=== PATIENT | male | born 2000 | race Caucasian/White ===

== ENCOUNTER 2023-08-11 20:04 | Emergency (ER) | payer MEDICARE, MEDICAID, SELFPAY ==
[2023-08-11 20:22] VITALS: BP 115/52; PULSE 101; RESP 16; TEMP 36.4; O2SAT 98; BMI 22.9
[2023-08-11 21:36] LABS: Urine Volume Low Vol <10mL (spun)
[2023-08-11 21:37] LABS: RBC Urine None Seen (0-5/HPF); Squamous Epithelial Cell Urine 0-1 /HPF (0-5/HPF); WBC Urine 0-1/HPF (0-5/HPF)
[2023-08-11 21:39] LABS: Bacteria Urine Occasional (0-1); Culture Indicated Urine Specimen Cultured
--- NOTE | 2023-08-11 22:57 | DI.RAD.S_ITS ---
PROCEDURE: XR ABDOMEN 1V INDICATIONS: abd pain TECHNIQUE: One view of the abdomen acquired. COMPARISON: None. FINDINGS: Surgical changes and devices: None. Bowel: Bowel gas pattern is nonobstructive. Prominent colonic stool. Soft tissues: No suspicious abdominal calcifications. Visualized solid organ contours appear normal in size. Bones: No suspicious bony lesions. IMPRESSION: Prominent colonic stool without obstruction. Dictated by: Fallon Joshua M.D. on 08/11/2023 at 23:34 Approved by: Fallon Joshua M.D. on 08/11/2023 at 23:35
--- NOTE | 2023-08-11 22:57 | ED.GENADULT ---
HPI - General Adult General Chief complaint: Abdominal Pain Stated complaint: urinary issues, pain Time Seen by Provider: 08/11/23 21:00 Source: patient and other Mode of arrival: Ambulatory History of Present Illness HPI narrative: Patient is a 23-year-old male. Has a history of autism. Chronic constipation. Takes MiraLax every morning. Is here with a elementary teacher who states that earlier today the patient was describing some issues with urination. Has had dark-colored urine and very foul-smelling urine. The patient states it does hurt somewhat to go to the bathroom. He also is stating that he was having some generalized abdominal pain. Also pain around his rectum. It is potentially been little over 24 hours since having a bowel movement. No vomiting. Related Data Home Medications Medication Instructions Recorded Confirmed clonazepam 0.5 mg tablet 0.5 mg PO DAILY 07/10/23 07/10/23 clonazepam 1 mg tablet 1 mg PO DAILY 07/10/23 07/10/23 quetiapine 200 mg tablet See Rx Instructions PO .COMPLEX 07/10/23 07/10/23 quetiapine 400 mg tablet 400 mg PO BEDTIME 07/10/23 07/10/23 Previous Rx's Medication Instructions Recorded acetaminophen 325 mg capsule 650 mg (2 x 325 mg) PO Q6H PRN 05/10/22 (Tylenol) fever or pain #30 caps divalproex 500 mg tablet,delayed 500 mg PO BID #180 tabs 09/23/22 release hydroxyzine HCl 50 mg tablet 50 mg PO BID #180 tabs 09/23/22 polyethylene glycol 3350 17 See Rx Instructions .Route 04/08/23 gram/dose oral powder .COMPLEX #238 grams psyllium husk (with sugar) 3.4 See Rx Instructions .Route 04/08/23 gram/12 gram oral powder (Fiber .COMPLEX #575 grams (psyllium husk-sugar)) fluoxetine 40 mg capsule 40 mg PO DAILY #90 caps 06/10/23 cetirizine 10 mg tablet 10 mg PO BEDTIME #90 tabs 07/28/23 cephalexin 500 mg capsule 500 mg PO BID 3 days #6 caps 08/11/23 polyethylene glycol 3350 17 See Rx Instructions .Route 08/11/23 gram/dose oral powder (Miralax) .COMPLEX #238 grams Allergies Allergy/AdvReac Type Severity Reaction Status Date / Time lorazepam AdvReac Verified 07/10/23 16:04 risperidone AdvReac Verified 07/10/23 16:04 Review of Systems Review of Systems Narrative: See HPI Patient History Medical History All medications reviewed Seasonal allergies Constipation Seizures Headache History of developmental delay ADHD Social History Smoking Status: Never smoker Smoking Status: Never smoker Exam Initial Vital Signs Initial Vital Signs: Vital Signs Temperature 97.6 F 08/11/23 20:22 Pulse Rate 101 H 08/11/23 20:22 Respiratory Rate 16 08/11/23 20:22 Blood Pressure 115/52 L 08/11/23 20:22 Pulse Oximetry 98 08/11/23 20:22 Oxygen Delivery Method Room Air 08/11/23 20:22 HENMA Head: normal to inspection and normocephalic Resp Effort & Inspection: normal respiratory effort Cardio Rate: regular rate GI Inspection: non-distended Palpation: soft, No firm, No guarding, No rigid and No tender Neuro General: patient alert and patient awake Course Orders Ordered: ED Orders 08/11/23 21:00 Urine Culture Stat Urine Microscopic Stat 08/11/23 22:57 XR abdomen 1V Stat Discontinued Medications Cephalexin HCl (Cephalexin 250 Mg Capsule) 500 mg PO NOW ONE Stop: 08/11/23 23:42 Last Admin: 08/12/23 00:08 Dose: 500 mg Documented By: DEBBIE Vital Signs Vital signs: Vital Signs - 8 hr 08/11/23 20:22 08/12/23 00:24 Temperature 97.6 F Pulse Rate 101 H 90 Respiratory Rate 16 18 Blood Pressure 115/52 L 117/78 Pulse Oximetry 98 100 Oxygen Delivery Method Room Air Room Air Medical Decision Making Lab Data Lab results reviewed: Yes I reviewed the patient's lab results. Labs: Lab Results 08/11/23 Range/Units 21:00 Urine RBC None seen (0-5/HPF) Urine WBC 0-1/hpf (0-5/HPF) Ur Squamous Epith Cells 0-1 /hpf (0-5/HPF) Urine Bacteria Occasional (0-1) (None) Ur Culture Indicated? Specimen cultured Vol Urine Centrifuged Low vol <10ml (spun) A Urine Dip Bedside Urine Glucose Negative Bedside Urine Bilirubin - Negative Bedside Urine Ketone - Negative Urine Specific [place] 1.020 Bedside Urine Occult Blood - Negative Bedside Urine pH 6 Bedside Urine Protein - Negative Bedside Urine Urobilinogen - Negative Bedside Urine Nitrite - Negative Bedside Urine Leukocytes +/- 15 Esterase Point of care testing: Urine Dip Bedside Urine Glucose Negative Bedside Urine Bilirubin - Negative Bedside Urine Ketone - Negative Urine Specific [place] 1.020 Bedside Urine Occult Blood - Negative Bedside Urine pH 6 Bedside Urine Protein - Negative Bedside Urine Urobilinogen - Negative Bedside Urine Nitrite - Negative Bedside Urine Leukocytes +/- 15 Esterase Imaging Data Abdominal x-ray: Radiologist's Impression: PROCEDURE: XR ABDOMEN 1V INDICATIONS: abd pain TECHNIQUE: One view of the abdomen acquired. COMPARISON: None. FINDINGS: Surgical changes and devices: None. Bowel: Bowel gas pattern is nonobstructive. Prominent colonic stool. Soft tissues: No suspicious abdominal calcifications. Visualized solid organ contours appear normal in size. Bones: No suspicious bony lesions. IMPRESSION: Prominent colonic stool without obstruction. MDM Narrative Medical decision making narrative: X-ray does show prominent stool burden in the colon. Do suspect a degree of constipation. Discussed the increase of MiraLax with the elementary teacher that he could take this multiple times a day. Urinalysis today does have bacteria. Given his presenting urinary symptoms will treat with antibiotics. First dose given here in the ER and a prescription was sent to pharmacy of their choice. A urine culture was pending at the time of discharge. Return precautions given to elementary teacher. Discharge Plan Departure Patient Disposition: Home Clinical Impression: Urinary tract infection, Constipation Instructions: DI for Urinary Tract Infection (UTI), DI for Constipation Activity Restrictions/Additional Instructions: A prescription for antibiotics was sent to [facility]. Please take it as directed. A urine culture was pending at the time of his discharge we will contact you if we need to change antibiotics based on this. Also recommend that you increase the MiraLax from 1 time a day to up to 3 times a day as needed for constipation. Return to the emergency department for new symptoms. Prescriptions: New cephalexin 500 mg capsule 500 mg PO BID 3 Days Qty: 6 0RF polyethylene glycol 3350 [Miralax] 17 gram/dose powder See Rx Instructions .ROUTE .COMPLEX Qty: 238 0RF Rx Instructions: 17 g orally 1 to 3 times a day PO as needed for constipation No Action acetaminophen [Tylenol] 325 mg capsule 650 mg PO Q6H MDD 3000mg PRN (Reason: fever or pain) Qty: 30 0RF Rx Instructions: Take 1-2 tablets every 4 to 6 hours for pain or fever, not to exceed 3000mg in 24 hours hydroxyzine HCl 50 mg tablet 50 mg PO BID Qty: 180 3RF divalproex 500 mg tablet,delayed release (DR/EC) 500 mg PO BID Qty: 180 3RF polyethylene glycol 3350 17 gram/dose powder See Rx Instructions .ROUTE .COMPLEX Qty: 238 12RF Dose Instruction: TAKE 17GM BY MOUTH MIXED IN 8 OUNCES OF LIQUID TWICE A WEEK NEEDED FOR CONSTIPATION Rx Instructions: TAKE 17GM BY MOUTH MIXED IN 8 OUNCES OF LIQUID TWICE A WEEK NEEDED FOR CONSTIPATION Fiber (psyllium husk-sugar) 3.4 gram/12 gram powder See Rx Instructions .ROUTE .COMPLEX Qty: 575 1RF Dose Instruction: DISSOLVE 1 TABLESPOON OF POWDER IN 4OZ OF JUICE AND DRINK ONCE DAILY Rx Instructions: DISSOLVE 1 TABLESPOON OF POWDER IN 4OZ OF JUICE AND DRINK ONCE DAILY cetirizine 10 mg tablet 10 mg PO BEDTIME Qty: 90 3RF quetiapine 200 mg tablet See Rx Instructions PO .COMPLEX Rx Instructions: orally Take one tab three times daily (8am, 12pm, 5pm) quetiapine 400 mg tablet 400 mg PO BEDTIME clonazepam 0.5 mg tablet 0.5 mg PO DAILY clonazepam 1 mg tablet 1 mg PO DAILY fluoxetine 40 mg capsule 40 mg PO DAILY Qty: 90 3RF Referrals: Kvng Alegre DO [Primary Care Provider] - Stand Alone Forms: Patient Portal/API
[2023-08-12] MEDS: cephALEXin 250 MG CAPSULE 500 MG PO (00:08)
[2023-08-12 00:24] VITALS: BP 117/78; PULSE 90; RESP 18; O2SAT 100
== END 2023-08-12 00:12 | disposition home or self-care (01) ==
PROVIDERS: Emergency Provider Emergency Medicine; PCP Family Medicine
DX: N39.0 Urinary tract infection, site not specified (principal); K59.00 Constipation, unspecified; R10.84 Generalized abdominal pain
CPT/HCPCS: 74018; 81003; 81015; 87086; 99283; 99284

== ENCOUNTER 2023-12-25 10:14 | Emergency (ER) | payer MEDICARE, MEDICAID, SELFPAY ==
[2023-12-25 10:15] VITALS: BP 135/88; PULSE 135; RESP 15; TEMP 36.3; O2SAT 96
[2023-12-25 10:23] VITALS: BP 135/88; PULSE 136; O2SAT 96
--- NOTE | 2023-12-25 11:25 | PC.NURSE ---
Pt was at family's house over the weekend, caregiver reports change from pt's normal personality stating usually he talks and talks and can tell you all the stories and you have to ask him to be quiet for a moment. Now he barely talking. Pt's caregiver concerned pt may not have been taking his normal medications while with family over the weekend.
[2023-12-25 11:31] LABS: Bacteria Urine None Seen; Culture Indicated Urine Cult Not Indicated; RBC Urine None Seen (0-5/HPF); Squamous Epithelial Cell Urine None Seen (0-5/HPF); Urine Volume 10mL (spun); WBC Urine 0-1/HPF (0-5/HPF)
--- NOTE | 2023-12-25 12:27 | ED.NEUROSD ---
HPI - Neuro Symptoms/Deficit General Chief Complaint: Neuro Symptoms/Deficit Stated Complaint: Not himself, Not sleeping not talking Time Seen by Provider: 12/25/23 11:48 Source: other Mode of arrival: Ambulatory History of Present Illness HPI Narrative: Patient 23-year-old male with developmental delay, history of TBI lives at a correction, but grandparents occasionally come and take him way from the home. Grandparents came last took him Friday to Friday however when he came back correction staff noted that he was not acting himself. Normally he is cooperative he can follow directions he is unable do so. He has had multiple episodes of diarrhea. No actual fever. They are not sure he got all of his medications when he was with his guardians. He is having maybe some mild abdominal discomfort but difficult to get history from him. Caregiver at bedside is a primary historian. Related Data Previous Rx's Medication Instructions Recorded acetaminophen 325 mg capsule 650 mg (2 x 325 mg) PO Q6H PRN 05/10/22 (Tylenol) fever or pain #30 caps cetirizine 10 mg tablet 10 mg PO BEDTIME #90 tabs 07/28/23 polyethylene glycol 3350 17 See Rx Instructions .Route 08/11/23 gram/dose oral powder (Miralax) .COMPLEX #238 grams divalproex 500 mg tablet,delayed 500 mg PO BID #180 tabs 09/16/23 release hydroxyzine HCl 50 mg tablet 50 mg PO BID #60 tabs 09/16/23 quetiapine 200 mg tablet 200 mg PO 3XD #90 tabs 09/16/23 quetiapine 400 mg tablet 400 mg PO QPM #30 tabs 09/16/23 clonazepam 1 mg tablet 1 mg PO DAILY PRN agitation #30 11/07/23 tabs Allergies Allergy/AdvReac Type Severity Reaction Status Date / Time lorazepam AdvReac Verified 12/25/23 10:28 risperidone AdvReac Verified 12/25/23 10:28 Patient History Medical History All medications reviewed Seasonal allergies Constipation Seizures Headache History of developmental delay ADHD Social History Smoking Status: Never smoker Smoking Status: Never smoker Exam Initial Vital Signs Initial Vital Signs: Vital Signs Temperature 97.3 F L 09/12/24 10:15 Pulse Rate 135 H 12/25/23 10:15 Respiratory Rate 15 12/25/23 10:15 Blood Pressure 135/88 12/25/23 10:15 Pulse Oximetry 96 12/25/23 10:15 Oxygen Delivery Method Room Air 12/25/23 10:15 GENERAL: Alert 23-year-old male HEENT: Head atraumatic,EOMI, pupils reactive, face symmetric, [moist] mucous membranes CARDIOVASCULAR: Regular rate and rhythm without murmurs, rubs or gallops. RESPIRATORY: Breath sounds equal bilaterally, no wheezes rales or rhonchi. ABDOMEN: Soft, nontender. Normoactive bowel sounds all 4 quadrants. No guarding or rebound. EXTREMITIES: Normal range of motion, no clubbing or edema. Neurovascularly intact NEUROLOGICAL: Moving all extremities no slurring of speech answer some questions SKIN: Warm, dry, no laceration, no petechiae, no rashes or lesions. Course Orders Ordered: ED Orders 12/25/23 10:51 Urine Drug Screen, Rapid Stat Urine Microscopic Stat 12/25/23 12:38 Acetaminophen Stat CBC Auto Diff [Complete Blood Count AUTO DIFF] Stat CMP [Comprehensive Metabolic Panel] Stat ETOH [Ethanol (ETOH)] Stat Salicylate Stat Valproic Acid (Depakene) Total Stat 12/25/23 12:42 CT abdomen pelvis w con Stat 12/25/23 13:05 COVID19 -Nasal RAPID Stat Discontinued Medications Ketorolac Tromethamine (Ketorolac 30 Mg/Ml Vial) 15 mg IV NOW ONE Stop: 12/25/23 12:47 Last Admin: 12/25/23 13:04 Dose: 15 mg Documented By: FRIDA Quetiapine Fumarate (Quetiapine 100 Mg Tablet) 200 mg PO NOW ONE Stop: 12/25/23 12:19 Last Admin: 12/25/23 12:31 Dose: 200 mg Documented By: KARSTEN Vital Signs Vital signs: Vital Signs - 8 hr 12/25/23 10:15 12/25/23 10:23 12/25/23 10:23 Temperature 97.3 F L Pulse Rate 135 H 136 H Respiratory Rate 15 Blood Pressure 135/88 135/88 Pulse Oximetry 96 96 Oxygen Delivery Method Room Air 12/25/23 13:53 12/25/23 14:09 Temperature 98.7 F Pulse Rate 89 Respiratory Rate 17 Blood Pressure 126/85 Pulse Oximetry 96 Oxygen Delivery Method MDM - Neuro Symptoms/Deficit Lab Data 12/25/23 12:38 12/25/23 12:38 Labs: Lab Results 12/25/23 12/25/23 12/25/23 Range/Units 10:51 12:38 13:05 WBC 4.5 (4.5-11.0) X10^3/uL RBC 4.50 (4.5-5.9) X10^6/uL Hgb 14.4 (13.5-17.5) g/dL Hct 41.9 (41-53) % MCV 93.2 (80-100) fL MCH 32.0 (26-34) PG MCHC 34.3 (30-36) % RDW 13.7 (11.6-14.8) % Plt Count 120 L (150-400) X10^3/uL Neut % (Auto) 68.7 (50-75) % Lymph % (Auto) 20.8 L (25-40) % Day % (Auto) 10.3 (3-14) % Eos % (Auto) 0.0 L (2-4) % Baso % (Auto) 0.2 (0-2) % Neut # (Auto) 3100 (0078-2649) /uL Lymph # (Auto) 900 L (0911-1421) /uL Day # (Auto) 500 (0-900) /uL Eos # (Auto) 0 (0-450) /uL Baso # (Auto) 0 (0-100) /uL Sodium 136 L (137-145) mmol/L Potassium 3.8 (3.4-5.1) mmol/L Chloride 101 (98-107) mmol/L Carbon Dioxide 28 (22-32) mmol/L BUN 10 (9-20) mg/dL Creatinine 0.86 (0.66-1.25) mg/dL Estimated GFR > 60 (>60) mL/min BUN/Creatinine Ratio 11.6 (6-22) Glucose 102 H (70-100) mg/dL Calcium 9.4 (8.4-10.2) mg/dL Total Bilirubin 0.7 (0.2-1.3) mg/dL AST 41 (17-59) IU/L ALT 21 (<50) IU/L Alkaline Phosphatase 83 (38-126) U/L Total Protein 7.5 (6.3-8.2) g/dL Albumin 4.2 (3.5-5.0) g/dL Globulin 3.3 (1.7-4.1) g/dL Albumin/Globulin Ratio 1.3 (1.0-2.8) Urine RBC None seen (0-5/HPF) Urine WBC 0-1/hpf (0-5/HPF) Ur Squamous Epith Cells None seen (0-5/HPF) Urine Bacteria None seen (None) Ur Culture Indicated? Cult not indicated Vol Urine Centrifuged 10ml (spun) Salicylates < 1.0 (<20) mg/dL U Opiates 300ng/mL cut Negative (Negative) Ur Oxycodone Screen Negative (Negative) Urine Methadone Screen Negative (Negative) Acetaminophen < 10 (10-30) ug/mL Ur Barbiturates Screen Negative (Negative) U Tricyclic Antidepress Positive H (Negative) Ur Phencyclidine Scrn Negative (Negative) Ur Amphetamines Screen Negative (Negative) U Methamphetamines Scrn Negative (Negative) Ur MDMA Scrn (Ecstasy) Negative (Negative) U Benzodiazepines Scrn Negative (Negative) Urine Cocaine Screen Negative (Negative) U Marijuana (THC) Screen Negative (Negative) Urine pH Normal (Normal) Urine Specific [place] Normal (Normal) Ethyl Alcohol < 10 ( - 10) mg/dL Ur Creatinine Normal (Normal) SARS-CoV-2 (PCR) Negative (Negative) Urine Dip Bedside Urine Glucose Negative Bedside Urine Bilirubin - Negative Bedside Urine Ketone +/- 5 Urine Specific [place] 1.015 Bedside Urine Occult Blood - Negative Bedside Urine pH 7.0 Bedside Urine Protein + 30 Bedside Urine Urobilinogen - Negative Bedside Urine Nitrite - Negative Bedside Urine Leukocytes - Negative Esterase Imaging Data CT scan - abdomen/pelvis: Radiologist's Impression: PROCEDURE: CT ABDOMEN PELVIS W CON INDICATIONS: ab pain TECHNIQUE: After the administration of intravenous contrast, axial sections acquired from the lung bases to the pubic symphysis. Coronal and sagittal reformats were performed. For radiation dose reduction, the following was used: automated exposure control, adjustment of mA and/or kV according to patient size. COMPARISON: None. FINDINGS: Image quality: Diagnostic. Lower Chest: No significant findings. ABDOMEN: Liver: No solid mass. Gallbladder: No radiopaque gallstones or wall thickening. Gallbladder is contracted Biliary ducts: No biliary dilation. Pancreas: No ductal dilation. Spleen: Size is within normal limits. Adrenal Glands: No adrenal nodules. Kidneys and Ureters: No hydronephrosis. No solid mass. No complex renal cystic lesion which requires follow up. Cross fused renal ectopia. Stomach and Bowel: Normal colonic caliber, without significant wall thickening. Normal appendix. No significant diverticular disease. Peritoneum: No abnormal intraperitoneal fluid. No free air. Ventral Wall: No significant ventral hernia. Abdominal Nodes: No retroperitoneal or mesenteric adenopathy by size criteria. Vessels: Aorta and inferior vena cava are normal in size. PELVIS: Pelvic Organs: Unremarkable. Bladder: No bladder wall thickening, accounting for underdistention. Pelvic Nodes: No enlarged lymph nodes. Miscellaneous: No inguinal hernias are seen. Bones: No aggressive osseous abnormality. IMPRESSION: No acute abnormality. Cross fused renal ectopia. Dictated by: Danish Paredes M.D. on 12/25/2023 at 13:06 Approved by: Danish Paredes M.D. on 12/25/2023 at 13:09 [facility] Narrative Medical decision making narrative: Patient 23-year-old male history of developmental delay TBI presenting today with altered mental status. He resides at a correction here with a staff member states this is not his normal mental state. He is awake and responsive but more can fused than normal. He did spend some time away with his guardians unclear P got any medications. He has had some episodes of diarrhea but no vomiting. Abdomen is soft and nontender nonacute. Staff member reports that other residents of the home have previously tested positive for COVID Blood work reviewed no leukocytosis anemia or electrolyte abnormalities Tox screen positive for tricyclic but negative for alcohol Tylenol and salicylate Depakote level pending Patient was given his home medication here in the ED CT reviewed without appendicitis or significant cause for altered mental status or diarrhea. Patient is pacing around the room he eating a grilled cheese. At this time no other cause for altered mental status is found. Suspect that it may be due to medication. COVID test is also negative. At this time no need for further workup or evaluation Discharge Plan Departure Patient Disposition: Home Clinical Impression: Gastroenteritis Instructions: DI for Viral Gastroenteritis -- Adult Activity Restrictions/Additional Instructions: *You have been diagnosed with gastroenteritis *What to do: At this time blood work is overall reassuring CT scan does not show any acute abnormality. I suspect that he has been off his meds and has some mild stomach virus. Keep hydrated with fluids may give Tylenol or Motrin as needed for pain COVID test is negative *Continue to take medications as directed *Follow up with your primary care provider in 2-3 days or call [phone] *Return to ER if you should have increased confusion pain or any new, worsening or concerning symptoms Prescriptions: No Action acetaminophen [Tylenol] 325 mg capsule 650 mg PO Q6H MDD 3000mg PRN (Reason: fever or pain) Qty: 30 0RF Rx Instructions: Take 1-2 tablets every 4 to 6 hours for pain or fever, not to exceed 3000mg in 24 hours cetirizine 10 mg tablet 10 mg PO BEDTIME Qty: 90 3RF hydroxyzine HCl 50 mg tablet 50 mg PO BID Qty: 60 11RF divalproex 500 mg tablet,delayed release (DR/EC) 500 mg PO BID Qty: 180 1RF quetiapine 400 mg tablet 400 mg PO QPM Qty: 30 11RF quetiapine 200 mg tablet 200 mg PO 3XD Qty: 90 11RF clonazepam 1 mg tablet 1 mg PO DAILY PRN (Reason: agitation) Qty: 30 5RF polyethylene glycol 3350 [Miralax] 17 gram/dose powder See Rx Instructions .ROUTE .COMPLEX Qty: 238 0RF Rx Instructions: 17 g orally 1 to 3 times a day PO as needed for constipation Referrals: Kvng Alegre DO [Primary Care Provider] - Stand Alone Forms: Patient Portal/API
[2023-12-25] MEDS: QUETIAPINE 100 MG TABLET 200 MG PO (12:31)
--- NOTE | 2023-12-25 12:42 | DI.CT.S_ITS ---
PROCEDURE: CT ABDOMEN PELVIS W CON INDICATIONS: ab pain TECHNIQUE: After the administration of intravenous contrast, axial sections acquired from the lung bases to the pubic symphysis. Coronal and sagittal reformats were performed. For radiation dose reduction, the following was used: automated exposure control, adjustment of mA and/or kV according to patient size. COMPARISON: None. FINDINGS: Image quality: Diagnostic. Lower Chest: No significant findings. ABDOMEN: Liver: No solid mass. Gallbladder: No radiopaque gallstones or wall thickening. Gallbladder is contracted Biliary ducts: No biliary dilation. Pancreas: No ductal dilation. Spleen: Size is within normal limits. Adrenal Glands: No adrenal nodules. Kidneys and Ureters: No hydronephrosis. No solid mass. No complex renal cystic lesion which requires follow up. Cross fused renal ectopia. Stomach and Bowel: Normal colonic caliber, without significant wall thickening. Normal appendix. No significant diverticular disease. Peritoneum: No abnormal intraperitoneal fluid. No free air. Ventral Wall: No significant ventral hernia. Abdominal Nodes: No retroperitoneal or mesenteric adenopathy by size criteria. Vessels: Aorta and inferior vena cava are normal in size. PELVIS: Pelvic Organs: Unremarkable. Bladder: No bladder wall thickening, accounting for underdistention. Pelvic Nodes: No enlarged lymph nodes. Miscellaneous: No inguinal hernias are seen. Bones: No aggressive osseous abnormality. IMPRESSION: No acute abnormality. Cross fused renal ectopia. Dictated by: Danish Paredes M.D. on 12/25/2023 at 13:06 Approved by: Danish Paredes M.D. on 12/25/2023 at 13:09
[2023-12-25 12:47] LABS: Add Manual Diff / Slide Review NO; Basophils Absolute Auto 0 /uL (0-100); Basophils Percent Auto 0.2 % (0-2); Eosinophils Absolute Auto 0 /uL (0-450); Hematocrit 41.9 % (41-53); Hemoglobin 14.4 g/dL (13.5-17.5); Lymphocytes Absolute Auto 900 /uL (1100-4500); Lymphocytes Percent Auto 20.8 % (25-40); Mean Corpuscular HGB Conc 34.3 % (30-36); Mean Corpuscular Volume 93.2 fL (80-100); Monocytes Absolute Auto 500 /uL (0-900); Monocytes Percent Auto 10.3 % (3-14); Neutrophils Absolute Auto 3100 /uL (1500-7000); Neutrophils Percent Auto 68.7 % (50-75); Platelet Count 120 X10^3/uL (150-400); Red Cell Distribution Width 13.7 % (11.6-14.8); White Blood Cell Count 4.5 X10^3/uL (4.5-11.0)
[2023-12-25 13:02] LABS: Acetaminophen < 10 ug/mL (10-30); Alanine Aminotransferase 21 IU/L (<50); Albumin 4.2 g/dL (3.5-5.0); Albumin Globulin Ratio 1.3 (1.0-2.8); Alkaline Phosphatase 83 U/L (38-126); Aspartate Aminotransferase 41 IU/L (17-59); BUN Creatinine Ratio 11.6 (6-22); Bilirubin Total 0.7 mg/dL (0.2-1.3); Blood Urea Nitrogen 10 mg/dL (9-20); Calcium 9.4 mg/dL (8.4-10.2); Carbon Dioxide 28 mmol/L (22-32); Chloride 101 mmol/L (98-107); Estimated Glomerular Filt Rate > 60 mL/min (>60); Ethanol (ETOH) < 10 mg/dL; Globulin 3.3 g/dL (1.7-4.1); Glucose 102 mg/dL (70-100); HEMOLYSIS < 15 (0-50); Potassium 3.8 mmol/L (3.4-5.1); Salicylate < 1.0 mg/dL (<20); Sodium 136 mmol/L (137-145); Total Protein 7.5 g/dL (6.3-8.2)
[2023-12-25] MEDS: KETOROLAC 30 MG/ML VIAL 15 MG IV (13:04)
[2023-12-25 13:06] LABS: UR Morphine/Opiate cutoff 300 Negative (Negative); Ur Creatinine Normal (Normal); Ur Specific Gravity Normal (Normal); Urine Amphetamines Negative (Negative); Urine Barbiturates Negative (Negative); Urine Benzodiazepines Negative (Negative); Urine Cocaine Negative (Negative); Urine MDMA Negative (Negative); Urine Methadone Negative (Negative); Urine Methamphetamines Negative (Negative); Urine Oxycodone Negative (Negative); Urine Phencyclidine Negative (Negative); Urine Tetrahydrocannabinol Negative (Negative); Urine Tricyclic Antidepressant Positive (Negative); Urine pH Normal (Normal)
[2023-12-25 13:30] LABS: COVID19 -Nasal RAPID Negative (Negative)
[2023-12-25 13:53] VITALS: BP 126/85; PULSE 89; O2SAT 96
[2023-12-25 14:09] VITALS: RESP 17; TEMP 37.1
[2023-12-26 03:36] LABS: Valproic Acid (Depakene) Total 138 ug/mL (50-100)
== END 2023-12-25 14:10 | disposition home or self-care (01) ==
PROVIDERS: Emergency Provider Emergency Medicine; PCP Family Medicine
DX: K52.9 Noninfective gastroenteritis and colitis, unspecified (principal); R41.82 Altered mental status, unspecified; Z11.52 Encounter for screening for COVID-19; Z87.898 Personal history of other specified conditions; F90.9 Attention-deficit hyperactivity disorder, unspecified type
CPT/HCPCS: 36415; 74177; 80053; 80164; 80305; 80320; 80329; 81003; 81015; 85025; 87635; 96374; 99284; G0480; J1885

== ENCOUNTER 2024-08-26 14:14 | Emergency (ER) | payer MEDICARE, MEDICAID, SELFPAY ==
[2024-08-26 14:41] VITALS: BP 121/78; PULSE 110; RESP 20; TEMP 36.6; O2SAT 97
[2024-08-26] MEDS: QUETIAPINE 25 MG TABLET 200 MG PO (17:56)
--- NOTE | 2024-08-26 18:38 | ED_ITS ---
HPI - Altered Mental Status General Chief Complaint: Altered Mental Status Stated Complaint: Sent from PCP Time Seen by Provider: 08/26/24 16:00 Source: patient Mode of arrival: Ambulatory History of Present Illness HPI narrative: 24-year-old male with a history of autism presents with numerical analysis group manager for altered mental status, according to the numerical analysis group manager patient is at baseline but was confused a few days ago, they state that they follow up with the primary care doctor today but was instructed come into the ED for urine and lab work, at time of evaluation according to the numerical analysis group manager patient is at baseline, time of evaluation patient is answering questions responding but HPI and ROS limited given patient's history of autism. Denies any issues or pain at the time he is able to follow commands he is cooperative and calm Related Data Home Medications Medication Instructions Recorded Confirmed fluoxetine 20 mg capsule 20 mg PO DAILY 08/26/24 08/26/24 Previous Rx's Medication Instructions Recorded acetaminophen 325 mg capsule 650 mg (2 x 325 mg) PO Q6H PRN 05/10/22 (Tylenol) fever or pain #30 caps cetirizine 10 mg tablet 10 mg PO BEDTIME #90 tabs 07/28/23 clonazepam 1 mg tablet 1 mg PO DAILY PRN agitation #30 11/07/23 tabs psyllium husk (with sugar) 3 1 tbsp PO DAILY #538 grams 01/06/24 gram/12 gram oral powder (Reguloid (psyllium husk-sucrose)) polyethylene glycol 3350 17 gram 17 g PO DAILY PRN constipation #30 03/08/24 oral powder packet ea divalproex 500 mg tablet,delayed 500 mg PO BID #180 tabs 08/17/24 release hydroxyzine HCl 50 mg tablet 50 mg PO BID #60 tabs 08/17/24 quetiapine 200 mg tablet 200 mg PO 3XD #90 tabs 08/17/24 quetiapine 400 mg tablet 400 mg PO QPM #30 tabs 08/17/24 Allergies Allergy/AdvReac Type Severity Reaction Status Date / Time lorazepam AdvReac Verified 08/26/24 13:15 risperidone AdvReac Verified 08/26/24 13:15 Review of Systems Review of Systems ROS Unobtainable: Unobtainable due to medical condition Patient History Medical History All medications reviewed Seasonal allergies Constipation Seizures Headache History of developmental delay ADHD Social History Smoking Status: Never smoker Smoking Status: Never smoker Exam Narrative Exam Narrative: General: Cooperative, well-developed, not in acute distress HEENT: Normocephalic, atraumatic, PERRLA, normal sclera, eyelids normal Neck: Active full range of motion, atraumatic Chest: Normal to inspection, negative crepitus, no overlying erythema ecchymosis Respiratory: Normal respiratory effort, not in acute respiratory distress, clear to auscultation bilaterally negative cough, wheeze, tachypnea, rhonchi, rales Cardiology: Regular rate rhythm negative gallop, murmur, rubs GI/: No tenderness to palpation, soft, non rigid, normal to inspection, exam deferred MSK: Full active range of motion in all 4 extremities, atraumatic, no tenderness to palpation of any bony prominences Skin: No rashes or lesions noted Neuro: History of autism, slow to respond but at baseline, moving all 4 extremities Psych: Cooperative, negative suicidal or homicidal ideations Initial Vital Signs Initial Vital Signs: Vital Signs Temperature 97.8 F 08/26/24 14:41 Pulse Rate 110 H 08/26/24 14:41 Respiratory Rate 20 08/26/24 14:41 Blood Pressure 121/78 08/26/24 14:41 Pulse Oximetry 97 08/26/24 14:41 Oxygen Delivery Method Room Air 08/26/24 14:41 Course Orders Ordered: ED Orders 08/26/24 18:44 BMP [Basic Metabolic Panel] Stat CBC Auto Diff [Complete Blood Count AUTO DIFF] Stat Discontinued Medications Quetiapine Fumarate (Quetiapine 25 Mg Tablet) 200 mg PO NOW ONE Stop: 08/26/24 16:42 Last Admin: 08/26/24 17:56 Dose: 200 mg Documented By: NATHANIEL Vital Signs Vital signs: Vital Signs - 8 hr 08/26/24 14:41 08/26/24 19:09 Temperature 97.8 F Pulse Rate 110 H 100 H Respiratory Rate 20 18 Blood Pressure 121/78 130/81 Pulse Oximetry 97 99 Oxygen Delivery Method Room Air MDM - Altered Mental Status Differential Diagnosis Differential diagnosis: Likely other (Urinary tract infection, electrolyte abnormality) Lab Data 08/26/24 18:44 05/15/25 18:44 Labs: Lab Results 08/26/24 Range/Units 18:44 WBC 4.2 L (4.5-11.0) X10^3/uL RBC 4.66 (4.5-5.9) X10^6/uL Hgb 14.6 (13.5-17.5) g/dL Hct 43.5 (41-53) % MCV 93.3 (80-100) fL MCH 31.4 (26-34) PG MCHC 33.6 (30-36) % RDW 13.5 (11.6-14.8) % Plt Count 113 L (150-400) X10^3/uL Neut % (Auto) 47.3 L (50-75) % Lymph % (Auto) 43.6 H (25-40) % [place] % (Auto) 8.4 (3-14) % Eos % (Auto) 0.4 L (2-4) % Baso % (Auto) 0.3 (0-2) % Neut # (Auto) 2000 (7766-6099) /uL Lymph # (Auto) 1800 (5361-2034) /uL [place] # (Auto) 400 (0-900) /uL Eos # (Auto) 0 (0-450) /uL Baso # (Auto) 0 (0-100) /uL Sodium 137 (137-145) mmol/L Potassium 3.9 (3.4-5.1) mmol/L Chloride 103 (98-107) mmol/L Carbon Dioxide 25 (22-32) mmol/L BUN 12 (9-20) mg/dL Creatinine 0.88 (0.66-1.25) mg/dL Estimated GFR > 60 (>60) mL/min BUN/Creatinine Ratio 13.6 (6-22) Glucose 94 (70-99) mg/dL Calcium 9.3 (8.4-10.2) mg/dL Urine Dip Bedside Urine Glucose Negative Bedside Urine Bilirubin - Negative Bedside Urine Ketone - Negative Urine Specific [place] 1.015 Bedside Urine Occult Blood - Negative Bedside Urine pH 6.5 Bedside Urine Protein - Negative Bedside Urine Urobilinogen - Negative Bedside Urine Nitrite - Negative Bedside Urine Leukocytes - Negative Esterase MDM Narrative Medical decision making narrative: 24-year-old male with history of autism presents with numerical analysis group manager for evaluation of altered mental status, according to the numerical analysis group manager patient went home a few days ago and came back to the [facility] did seem a little bit more confused but now at baseline, he states that they made an appointment with the primary care doctor today but was instructed come into the ED today for lab work and a urinalysis, patient had lab work and urinalysis without any signs of infection or abnormalities, patient will be discharged home with outpatient follow up numerical analysis group manager was given strict return precautions he verbalized understanding of this and agrees with the being discharged home with outpatient follow up Discharge Plan Departure Patient Disposition: Home Clinical Impression: Normal exam Activity Restrictions/Additional Instructions: Please follow up with the primary care doctor Please read the discharge instructions sheet carefully and bring all papers to all doctor follow-up visits, as it may contain information that your doctor may want to see. Disease processes change and evolve, if your symptoms worsen or if you develop any new symptoms that are concerning to you please return for evaluation. Your evaluation today does not show any evidence of any life- threatening/serious illnesses requiring admission to the hospital or surgery. Please follow-up with your doctor for re-evaluation in approximately 1 day. Seek immediate medical attention for any worrisome symptoms. *If you do not have a primary care provider please contact the [facility] Resource line at [phone]. They will ask some questions about your medical history and help get you set up with a doctor in the community. Prescriptions: No Action acetaminophen [Tylenol] 325 mg capsule 650 mg PO Q6H MDD 3000mg PRN (Reason: fever or pain) Qty: 30 0RF Rx Instructions: Take 1-2 tablets every 4 to 6 hours for pain or fever, not to exceed 3000mg in 24 hours cetirizine 10 mg tablet 10 mg PO BEDTIME Qty: 90 3RF Reguloid (psyllium husk-sucro) 3 gram/12 gram powder 1 tbsp PO DAILY Qty: 538 11RF polyethylene glycol 3350 17 gram powder in packet 17 g PO DAILY PRN (Reason: constipation) Qty: 30 12RF Rx Instructions: After 2 days with no bowel movement please take this medication on day 3 and continue daily till bowel movements are regular again. quetiapine 400 mg tablet 400 mg PO QPM Qty: 30 11RF quetiapine 200 mg tablet 200 mg PO 3XD Qty: 90 11RF hydroxyzine HCl 50 mg tablet 50 mg PO BID Qty: 60 11RF divalproex 500 mg tablet,delayed release (DR/EC) 500 mg PO BID Qty: 180 1RF clonazepam 1 mg tablet 1 mg PO DAILY PRN (Reason: agitation) Qty: 30 5RF fluoxetine 20 mg capsule 20 mg PO DAILY Referrals: Kvng Alegre DO [Primary Care Provider] - Stand Alone Forms: Patient Portal/API/Survey
[2024-08-26 19:01] LABS: Add Manual Diff / Slide Review NO; Basophils Absolute Auto 0 /uL (0-100); Basophils Percent Auto 0.3 % (0-2); Eosinophils Absolute Auto 0 /uL (0-450); Eosinophils Percent Auto 0.4 % (2-4); Hematocrit 43.5 % (41-53); Hemoglobin 14.6 g/dL (13.5-17.5); Lymphocytes Absolute Auto 1800 /uL (1100-4500); Lymphocytes Percent Auto 43.6 % (25-40); Mean Corpuscular HGB Conc 33.6 % (30-36); Mean Corpuscular Hemoglobin 31.4 PG (26-34); Mean Corpuscular Volume 93.3 fL (80-100); Monocytes Absolute Auto 400 /uL (0-900); Monocytes Percent Auto 8.4 % (3-14); Neutrophils Absolute Auto 2000 /uL (1500-7000); Neutrophils Percent Auto 47.3 % (50-75); Platelet Count 113 X10^3/uL (150-400); Red Blood Cell Count 4.66 X10^6/uL (4.5-5.9); Red Cell Distribution Width 13.5 % (11.6-14.8); White Blood Cell Count 4.2 X10^3/uL (4.5-11.0)
[2024-08-26 19:09] VITALS: BP 130/81; PULSE 100; RESP 18; O2SAT 99
[2024-08-26 19:14] LABS: BUN Creatinine Ratio 13.6 (6-22); Blood Urea Nitrogen 12 mg/dL (9-20); Calcium 9.3 mg/dL (8.4-10.2); Carbon Dioxide 25 mmol/L (22-32); Chloride 103 mmol/L (98-107); Estimated Glomerular Filt Rate > 60 mL/min (>60); Glucose 94 mg/dL (70-99); HEMOLYSIS < 15 (0-50); Potassium 3.9 mmol/L (3.4-5.1); Sodium 137 mmol/L (137-145)
== END 2024-08-26 19:50 | disposition home or self-care (01) ==
PROVIDERS: Emergency Provider Student in an Organized Health Care Education/Training Program; PCP Family Medicine
DX: R41.0 Disorientation, unspecified (principal)
CPT/HCPCS: 80048; 81003; 85025; 99283